=== PATIENT | female | born 1970 | race Two or more races ===

== ENCOUNTER 2022-04-30 15:32 | Emergency (ER) | payer OTHER, SELFPAY ==
--- NOTE | ~2022-04-30 | XR_ITS ---
EXAMINATION: XR hand LT 2V CLINICAL INFORMATION: Reason for Exam fishing hook stuck COMPARISON: None. TECHNIQUE: AP, lateral, and oblique views of the hand FINDINGS: No acute fracture or dislocation. Joint spaces are maintained without significant degenerative change. Metallic foreign body compatible with fishing hook is seen in the volar soft tissues of the distal third digit. XR/XR hand LT 2V IMPRESSION: Metallic foreign body compatible with fishing hook is seen in the volar soft tissues of the distal third digit. No acute osseous abnormality.
[2022-04-30 15:45] VITALS: BP 137/80; BP 150/88; PULSE 101; PULSE 88; RESP 18; TEMP 36.7; O2SAT 95; O2SAT 98; BMI 24.5
--- NOTE | 2022-04-30 15:56 | ED.GENADULT ---
HPI - General Adult General Chief complaint: General Medical <Holley Yao NP - Last Filed: 04/30/22 16:00> Stated complaint: Fishing hook through finger per ems <Holley Yao NP - Last Filed: 04/30/22 16:00> Time Seen by Provider: 04/30/22 16:45 <Holley Yao NP - Last Filed: 04/30/22 16:00> Source: patient <LOUISE Westbrook - Last Filed: 04/30/22 17:43> Mode of arrival: ambulatory <LOUISE Westbrook - Last Filed: 04/30/22 17:43> Limitations: no limitations <LOUISE Westbrook - Last Filed: 04/30/22 17:43> History of Present Illness HPI narrative: 52-year-old female who is presenting from a half-way after when she was picking up socks off the floor and a fishhook accidentally punctured her in the left-hand middle finger at the distal aspect prior to arrival. She reports she is unsure if she is up-to-date on tetanus. She denies any other injuries complaints or concerns at this time <LOUISE Westbrook - Last Filed: 04/30/22 17:43> MD complaint: Kingsford stuck to left middle finger <LOUISE Westbrook - Last Filed: 04/30/22 17:43> Onset (ago): minute(s) (Prior to arrival) <LOUISE Westbrook - Last Filed: 04/30/22 17:43> Related Data Home medications: Previous Rx's Medication Instructions Recorded cephalexin 500 mg capsule 500 mg PO BID 7 days #14 caps 04/30/22 <Holley Yao NP - Last Filed: 04/30/22 16:00> Allergies/adverse reactions: Allergies Allergy/AdvReac Type Severity Reaction Status Date / Time No Known Allergies Allergy Verified 04/30/22 15:45 <Holley Yao NP - Last Filed: 04/30/22 16:00> Review of Systems Review of Systems: Constitutional : No Weight loss, No Fever, No Chills, No Night Sweats, No Fatigue, No Malaise ENT/Mouth : No Hearing loss, No Ear Pain, No Nasal Congestion, No Sinus Pain, No Hoarseness, No sore throat, No Rhinorrhea, No Swallowing Difficulty Eyes: No Eye Pain, No Swelling, No Redness, No Foreign Body, No Discharge, No Vision Changes Cardiovascular : No Chest Pain, No SOB, No Dyspnea on Exertion, No Orthopnea, No Edema, No Palpitations Respiratory : No Cough, No Sputum, No Wheezing, No Smoke Exposure, No Dyspnea Gastrointestinal : No Nausea, No Vomiting, No Diarrhea, No Constipation, No abdominal Pain, No Hematochezia, No Melena Genitourinary : no irregular bleeding, No Dysuria, No Urinary Frequency, No Hematuria, No Urinary Incontinence, No Urgency, No Flank Pain, No Urinary Flow Changes, No Hesitancy Musculoskeletal : No joint pain, No Myalgias, No Joint Swelling Skin : + fishhook to left middle finger distal aspect, No Skin Lesions, No rash Neuro : No Weakness, No Numbness, No Paresthesias, No Loss of Consciousness, No Dizziness, No Headache Psych : No Anxiety/Panic, No Depression, No SI/HI/AH/VH, No Social Issues, Heme/Lymph: No Bruising, No Bleeding,No Lymphadenopathy Endocrine : No Polyuria, No Polydipsia, No Temperature Intolerance <OLUISE Westbrook - Last Filed: 04/30/22 17:43> Yes all other systems are reviewed and are negative <LOUISE Westbrook - Last Filed: 04/30/22 17:43> PMFSH Past Medical History Attestation statement: The following information was validated with the patient. <LOUISE Westbrook - Last Filed: 04/30/22 17:43> Source: old records reviewed and nursing notes reviewed <LOUISE Westbrook - Last Filed: 04/30/22 17:43> Social History Social History: Social History Advance Directives: No Advance Directives Information Provided: No <Holley Yao NP - Last Filed: 04/30/22 16:00> Physical Exam ED Vital Signs: Vital Signs - 24 hr 04/30/22 15:45 Temperature 98.0 F Pulse Rate 88 Respiratory Rate 18 Blood Pressure 137/80 Pulse Oximetry 98 Oxygen Delivery Method Room Air BMI result Body Mass Index 24.5 <Holley Yao NP - Last Filed: 04/30/22 16:00> Vital Signs - 24 hr 04/30/22 15:45 Temperature 98.0 F Pulse Rate 88 Respiratory Rate 18 Blood Pressure 137/80 Pulse Oximetry 98 Oxygen Delivery Method Room Air BMI result Body Mass Index 24.5 vital signs have been reviewed as normal and appeared to be correct. Blood pressure normal. Heart rate normal. Respiration rate normal. Temperature normal. Oxygen saturation normal. <LOUISE Westbrook - Last Filed: 04/30/22 17:43> Appearance: Alert. Oriented X3. No acute distress. Head: Normal external exam. Normocephalic. Atraumatic. Eyes: PERRLA. EOMI. Conjunctiva and sclera normal. Eyelids normal. ENT: Pharynx normal. Uvula midline. Moist mucous membranes. No lesions/ulcerations or masses noted on the tongue. Normal voice. No trismus noted. No drooling noted. No muffled voice noted. Neck: Normal inspection. Neck supple. FROM. No adenopathy. Thyroid Normal. No meningeal signs. CVS: Normal heart rate and rhythm. Respiratory: No respiratory distress. Painless inspiration. Back: Full range of motion noted. Skin: Skin warm and dry. Normal skin color. Normal skin turgor. [place] embedded into the left hand middle finger at the distal fat pad. No bony tenderness and patient has full range of motion no obvious ligamentous or tendon injury noted. No additional rashes/lesions/lacerations noted. Extremities: Extremities exhibit normal range of motion and nontender. Neuro: Oriented X 3. No motor deficit. No sensory deficit. Reflexes normal. Normal steady gait. No focal neuro deficits noted. CN's II-XII intact bilaterally? Vascular: + radial pulses Normal cap refill. No cyanosis noted to upper extremity nails <LOUISE Westbrook - Last Filed: 04/30/22 17:43> Course Course Course Narrative: This is a rapid medical exam. Deferred HPI, ROS, PE to primary provider. From [facility] fel[facility]. Right hand dominant patient here with fishhook to left middle finger. Will check x-ray. Needs FB removal. VSS <Holley Yao NP - Last Filed: 04/30/22 16:00> Reevaluation(s) Reevaluation #1: Patient now status post fishhook removal. Patient tolerated procedure well. No complications. Tetanus updated at this time. Will DC home with antibiotics and symptomatic treatment instructions return if any new or worsening symptoms to follow up with primary care provider. Patient understands agrees with this plan. <LOUISE Westbrook - Last Filed: 04/30/22 17:43> Time: 17:18 <LOUISE Westbrook - Last Filed: 04/30/22 17:43> Medications Administered Discontinued Medications Generic Name Dose Route Start Last Admin Trade Name Freq PRN Reason Stop Dose Admin Diphtheria/Tetanus/Acell Pertussis 0.5 ml 04/30/22 17:14 04/30/22 17:36 Diphth,Pertus(Acell),Tet Adult 0.5 Ml Syringe IM 04/30/22 17:15 0.5 ml .ONCE ONE Administration <Holley Yao NP - Last Filed: 04/30/22 16:00> Medications Administered Discontinued Medications Generic Name Dose Route Start Last Admin Trade Name Freq PRN Reason Stop Dose Admin Diphtheria/Tetanus/Acell Pertussis 0.5 ml 04/30/22 17:14 04/30/22 17:36 Diphth,Pertus(Acell),Tet Adult 0.5 Ml Syringe IM 04/30/22 17:15 0.5 ml .ONCE ONE Administration <LOUISE Westbrook - Last Filed: 04/30/22 17:43> Procedures Foreign Body Removal Time Out Performed: yes <LOUISE Westbrook - Last Filed: 04/30/22 17:43> Site: left and hand (middle finger) <LOUISE Westbrook - Last Filed: 04/30/22 17:43> Description of foreign body: fish hook <LOUISE Westbrook - Last Filed: 04/30/22 17:43> Sedation/Analgesia: none <LOUISE Westbrook - Last Filed: 04/30/22 17:43> Technique: manual removal, removal with forceps and other (fish hook was cut ) <LOUISE Westbrook - Last Filed: 04/30/22 17:43> Confirmed by:: direct visualization, radiograph, patient report and palpation <LOUISE Westbrook - Last Filed: 04/30/22 17:43> Complications: none <LOUISE Westbrook - Last Filed: 04/30/22 17:43> Post-procedure exam: awake, alert, normal BP, normal HR and normal O2 sat <LOUISE Westbrook Last Filed: 04/30/22 17:43> Neurovascular: normal distal pulse, normal capillary fill, distal light touch sensation intact, distal motor function normal, no signs of compartment syndrome and no change from pre-procedure <LOUISE Westbrook - Last Filed: 04/30/22 17:43> Medical Decision Making Imaging Data Left hand x-ray: Attestation: I personally reviewed and interpreted this imaging study as follows: <LOUISE Westbrook Last Filed: 04/30/22 17:43> Radiologist's impression: FINDINGS: No acute fracture or dislocation. ? Joint spaces are maintained without significant degenerative change. Metallic foreign body compatible with fishing hook is seen in the volar soft tissues of the distal third digit. XR/XR hand LT 2V IMPRESSION: ? Metallic foreign body compatible with fishing hook is seen in the volar soft tissues of the distal third digit. No acute osseous abnormality. <LOUISE Westbrook - Last Filed: 04/30/22 17:43> Discharge Plan Discharge Clinical Impression: Fish hook injury of left middle finger <Holley Yao NP - Last Filed: 04/30/22 16:00> Patient Disposition: Home, Self-Care <Holley Yao NP - Last Filed: 04/30/22 16:00> Instructions: Soft Tissue Foreign Body (ED) <Holley Yao NP - Last Filed: 04/30/22 16:00> Prescriptions: New cephalexin 500 mg capsule 500 mg PO BID 7 Days Qty: 14 0RF <Holley Yao NP - Last Filed: 04/30/22 16:00>
[2022-04-30] MEDS: Diphth,Pertus(ACell),Tet Adult 0.5 ML SYRINGE IM (17:36)
--- NOTE | 2022-04-30 18:32 | PC.NURSE ---
Jeannette called at 182 for a bls transfer back to [facility] in [place].ETA within the hour.Kina aware
--- NOTE | 2022-04-30 19:12 | PC.NURSE ---
report called to responsible person Dawna @lala Russell tranferred back to facility via Joe PEREZ
== END 2022-04-30 19:14 | disposition home or self-care (01) ==
PROVIDERS: Emergency Provider Emergency Medicine Emergency Medical Services
DX: S61.243A Puncture wound with foreign body of left middle finger without damage to nail, initial encounter (principal); W45.8XXA Other foreign body or object entering through skin, initial encounter; Y93.E2 Activity, laundry; Y92.042 Bedroom in boarding-house as the place of occurrence of the external cause; Y99.9 Unspecified external cause status
CPT/HCPCS: 73120; 90471; 90715; 99282; 99284

== ENCOUNTER 2022-08-11 10:06 | Emergency (ER) | payer OTHER, SELFPAY ==
--- NOTE | ~2022-08-11 | CT_ITS ---
EXAMINATION: CT abdomen and pelvis with contrast CLINICAL INFORMATION: Generalized abdominal pain COMPARISON: None available. TECHNIQUE: Contiguous axial thin section helical images of the abdomen and pelvis was performed following the administration of 85 mL of Omnipaque 350 intravenous contrast. The data set was reformatted in the coronal and sagittal planes and reviewed on an independent workstation. This CT examination was performed using dose optimization techniques as appropriate, variously including the following: *Automated exposure control *Adjustment of mA and/or kV according to patient size (this includes techniques or standardized protocols for targeted exams where dose is matched to indication/reason for exam; i.e. extremities or head) *Use of iterative reconstruction technique DLP: 480 mGy-cm FINDINGS: Visualized lung bases demonstrate mild dependent atelectasis. The liver demonstrates normal size, contour and attenuation. The gallbladder is normal in appearance. The pancreas, spleen and adrenal glands are unremarkable. Symmetrically enhancing kidneys. There is no hydronephrosis of either kidney. 6 mm hypodense lesion within the midpole of the right kidney is too small to accurately characterize. Normal caliber loops of small and large bowel. There is primarily liquid stool is throughout the colon. Normal appendix. Normal caliber abdominal aorta. No retroperitoneal lymphadenopathy. The bladder is normal in appearance. The uterus is either atrophic or surgically absent. No gross free pelvic fluid. A few shotty pelvic lymph nodes are noted bilaterally. Mild degenerative changes of the spine. CT/CT abdomen w IV con IMPRESSION: 1. There is primarily liquid stool throughout the colon. This is a nonspecific finding but most suggestive of an infectious or inflammatory process. 2. 6 mm hypodense lesion within the midpole of the right kidney is too small to accurately characterize. This may be further evaluated with dedicated renal ultrasound if clinically indicated. Fleischner guidelines were followed.
[2022-08-11 10:13] VITALS: BP 100/63; PULSE 94; O2SAT 99
--- NOTE | 2022-08-11 10:14 | ECG_ITS ---
Test Reason : ABD PAIN Blood Pressure : / mmHG Vent. Rate : 087 BPM Atrial Rate : 087 BPM P-R Int : 138 ms QRS Dur : 082 ms QT Int : 376 ms P-R-T Axes : 043 064 062 degrees QTc Int : 452 ms Normal sinus rhythm Low voltage QRS Nonspecific T wave abnormality Abnormal ECG No previous ECGs available Referred By: Jeff Aguirre Electronically Signed By:Randy Singh
[2022-08-11 10:21] LABS: Glucose, Whole Blood 171 mg/dL (60-115)
[2022-08-11 10:28] VITALS: BP 110/77; PULSE 91; RESP 20; TEMP 36.5; O2SAT 96; BMI 31.8
--- NOTE | 2022-08-11 10:29 | ED.ABDPAIN ---
HPI - Abdominal Pain General Chief Complaint: Nausea/Vomiting/Diarrhea Stated Complaint: ABD PAIN,NAUSEA FROM [facility] PER EMS Time Seen by Provider: 08/11/22 10:08 Source: patient and EMS Mode of arrival: EMS Limitations: no limitations History of Present Illness HPI narrative: 52-year-old female coming from a longterm presents with 2 days of abdominal pain, nausea no vomiting, no constipation or diarrhea. Patient describes her pain is intermittent. The pain is moderate to severe. There is no clear relieving or exacerbating features. The abdominal pain is generalized and does not radiate. It is associated with nausea but no vomiting. She has had normal bowel movements without diarrhea constipation. She is passing flatus. She denies any vaginal bleeding or discharge. She has no urinary frequency, urgency or dysuria. Prior to arrival, patient's blood sugar was 170, no to be moderately hypertensive. Facility reports that her blood sugars in the morning a been running low and they been attempting to alter her Trulicity dosage. Related Data Previous Rx's Medication Instructions Recorded cephalexin 500 mg capsule 500 mg PO BID 7 days #14 caps 04/30/22 ondansetron 4 mg disintegrating 4 mg PO Q8H PRN nausea and 08/11/22 tablet vomiting #10 tabs Allergies Allergy/AdvReac Type Severity Reaction Status Date / Time No Known Allergies Allergy Verified 04/30/22 15:45 [facility] Social History Social History Alcohol intake: never Smoked in Last 30 Days: Yes Use of substances other than those prescribed or required for medical reasons: No Advance Directives: No Advance Directives Information Provided: Yes Physical Exam ED Vital Signs: Vital Signs - 24 hr 08/11/22 10:28 Temperature 97.7 F Pulse Rate 91 Respiratory Rate 20 Blood Pressure 110/77 Pulse Oximetry 96 Oxygen Delivery Method Room Air BMI result Body Mass Index 31.8 GEN: Well developed, no acute distress, alert, oriented HEENT: Normocephalic, atraumatic, normal external ears, nose appears normal, no oropharyngeal edema or exudates Eyes: Normal to appearance Neck: Supple, no lymphadenopathy Respiratory: Talks in complete sentences, no respiratory distress, clear to auscultation bilaterally Cardiovascular: Regular rate and rhythm, no murmurs rubs or gallops Abdomen: Soft, + generALIZED TENDERNESS , nondistended, no guarding, no rebound Back: No CVA tenderness Extremities: No clubbing cyanosis or edema Neurologic: No focal neurologic deficits, cranial nerves 2-12 intact, strength is 5/5 bilaterally, gait normal Skin: No rash Course Course Course Narrative: 52-year-old female presents with abdominal pain associated with nausea. Examination was relatively benign with diffuse abdominal tenderness no rebound or guarding. Negative Oneal sign, negative McBurney's point tenderness. A broad differential diagnosis being considered. Patient had a CT scan, laboratory analysis, urinalysis, EKG. Reevaluation(s) Reevaluation #1: Patient is currently feeling better. She will be discharged at this time. She is tolerating oral intake. We discussed all results and plan. She will be given a prescription for Zofran to take as needed. We talked about taking higher fiber and rice and bananas as needed help with diarrhea Time: 13:21 Medical Decision Making Medical Decision Making [facility] Narrative: 52-year-old female presents with abdominal pain and nausea. Examination is concerning for diffuse abdominal tenderness. However there is no rebound or guarding. She has nausea but no vomiting. She is passing flatus and bowel movements. Differential diagnosis is broad and is currently being considered including but not limited to gastroenteritis, IBD, IBS, bacterial overgrowth, gastroenteritis, viral syndrome, cardiac, SBO, ileus. Doubt dissection or ruptured AAA. There are no red flag findings on exam or history. Patient will receive analgesics, antiemetics and IV fluids with frequent re-evaluations. Differential Diagnosis Differential Diagnoses: The differential diagnosis associated with the presentation includes (gastroenteritis, IBD, IBS, bacterial overgrowth, gastroenteritis, viral syndrome, cardiac, SBO, ileus) Nausea, vomiting, abdominal pain Admission/Observation Consideration of admission/observation: Escalation of care including admission/observation considered Lab Data [facility] Lab Attestation statement: I reviewed the patient's lab results. 08/11/22 10:26 08/11/22 10:26 Labs: Lab Results 08/11/22 08/11/22 08/11/22 Range/Units 10:13 10:26 10:26 WBC 9.6 (4.8-10.8) X10*3/uL RBC 4.71 (4.20-5.50) X10*6/uL Hgb 14.4 (12.0-16.0) g/dl Hct 43.1 (37.0-47.0) % MCV 91.5 (80.0-98.0) fL MCH 30.6 (27.0-33.0) pg MCHC 33.4 (31.0-35.0) g/dl RDW 12.5 (11.0-16.0) % Plt Count 387 (160-400) X10*3/uL MPV 10.1 (9.4-12.3) fL Immature Gran % (Auto) 0.4 (0.0-0.4) % Neut % (Auto) 70.5 (45-73) % Lymph % (Auto) 21.0 (20-40) % [place] % (Auto) 5.7 (2-11) % Eos % (Auto) 1.8 (0-4) % Baso % (Auto) 0.6 (0-2) % Lymph # (Auto) 2.0 (1.2-4.9) X10*3/uL [place] # (Auto) 0.6 (0.1-1.2) X10*3/uL Eos # (Auto) 0.2 (0.0-0.4) X10*3/uL Baso # (Auto) 0.1 (0.0-0.2) X10*3/uL Abs Immat Gran (auto) 0.04 H (0.00-0.03) X10*3/uL Absolute Neuts (auto) 6.8 (2.0-8.3) x10*3/uL Absolute Nucleated RBC 0.000 (0.0-0.012) X10*3/uL Nucleated RBC % (auto) 0.0 (0.0-0.2) /100WBC Sodium 141 (135-145) mmol/L Potassium 4.1 (3.3-5.1) mmol/L Chloride 106 (96-108) mmol/L Carbon Dioxide 24 (22-29) mmol/L Anion Gap 15 (12-20) BUN 13 (9-16) mg/dL Creatinine 0.99 (0.5-1.4) mg/dL Estim Creat Clear Calc 63.6 Estimated GFR 59 POC Glucose 171 H (60-115) mg/dL Random Glucose 124 H (60-115) mg/dL Calcium 9.6 (8.4-10.2) mg/dL Total Bilirubin 0.7 (0.0-1.0) mg/dL Direct Bilirubin 0.2 (0.0-0.5) mg/dL AST 16 (5-31) U/L ALT 21 (0-31) U/L Alkaline Phosphatase 162 H (39-117) U/L Troponin I High Sens (<3.5-17.0) ng/L Total Protein 7.5 (6.5-8.0) g/dL Albumin 4.5 (3.5-5.0) g/dL Lipase 57 (8-78) U/L 08/11/22 Range/Units 10:26 WBC (4.8-10.8) X10*3/uL RBC (4.20-5.50) X10*6/uL Hgb (12.0-16.0) g/dl Hct (37.0-47.0) % MCV (80.0-98.0) fL MCH (27.0-33.0) pg MCHC (31.0-35.0) g/dl RDW (11.0-16.0) % Plt Count (160-400) X10*3/uL MPV (9.4-12.3) fL Immature Gran % (Auto) (0.0-0.4) % Neut % (Auto) (45-73) % Lymph % (Auto) (20-40) % [place] % (Auto) (2-11) % Eos % (Auto) (0-4) % Baso % (Auto) (0-2) % Lymph # (Auto) (1.2-4.9) X10*3/uL [place] # (Auto) (0.1-1.2) X10*3/uL Eos # (Auto) (0.0-0.4) X10*3/uL Baso # (Auto) (0.0-0.2) X10*3/uL Abs Immat Gran (auto) (0.00-0.03) X10*3/uL Absolute Neuts (auto) (2.0-8.3) x10*3/uL Absolute Nucleated RBC (0.0-0.012) X10*3/uL Nucleated RBC % (auto) (0.0-0.2) /100WBC Sodium (135-145) mmol/L Potassium (3.3-5.1) mmol/L Chloride (96-108) mmol/L Carbon Dioxide (22-29) mmol/L Anion Gap (12-20) BUN (9-16) mg/dL Creatinine (0.5-1.4) mg/dL Estim Creat Clear Calc Estimated GFR POC Glucose (60-115) mg/dL Random Glucose (60-115) mg/dL Calcium (8.4-10.2) mg/dL Total Bilirubin (0.0-1.0) mg/dL Direct Bilirubin (0.0-0.5) mg/dL AST (5-31) U/L ALT (0-31) U/L Alkaline Phosphatase (39-117) U/L Troponin I High Sens < 3.5 (<3.5-17.0) ng/L Total Protein (6.5-8.0) g/dL Albumin (3.5-5.0) g/dL Lipase (8-78) U/L Independent Interpretation I performed an independent interpretation of an: EKG (Normal sinus rhythm heart rate 87, no acute ST elevations or depressions, normal intervals, nonspecific T-wave changes.) and CT Scan (Significant stool burden, no evidence of SBO) Radiology Impression Discussion of test interpretation with radiology: I have reviewed the radiologist's reading. ( CT/CT abdomen w IV con IMPRESSION: 1. There is primarily liquid stool throughout the colon. This is a nonspecific finding but most suggestive of an infectious or inflammatory process. 2. 6 mm hypodense lesion within the midpole of the right kidney is too small to accurately alize) Independent Historian Clinical information obtained from an independent historian. History obtained from or confirmed by: EMS Tests considered The following testing was considered but not selected: A x-ray abdomen chest Prescription Management I considered prescription management with: Pain Medication Chronic Conditions Patient?s care impacted by: Diabetes and Hypertension Social Determinants Patient?s care significantly limited by Social Determinants of Health including: Other Social Determinant of Health Medications Administered Discontinued Medications Generic Name Dose Route Start Last Admin Trade Name Freq PRN Reason Stop Dose Admin Famotidine 20 mg 08/11/22 10:11 08/11/22 10:31 Famotidine/Pf 20 Mg/2 Ml Vial IVPUSH 03/16/23 10:12 20 mg ONCE ONE Administration Sodium Chloride 1,000 mls @ 999 mls/hr 08/11/22 10:15 08/11/22 13:09 Ns IV 08/11/22 11:15 Infused .Q1H1M BRYNN Infusion Iohexol 85 ml 08/11/22 11:17 08/11/22 11:17 Iohexol 350 Mg/Ml 100 Ml Infus..Btl IV 08/11/22 11:18 85 ml ONCE ONE Administration Ketorolac Tromethamine 15 mg 08/11/22 10:11 08/11/22 10:31 Ketorolac Tromethamine 15 Mg/Ml Vial IVPUSH 08/11/22 10:12 15 mg ONCE ONE Administration Ondansetron HCl 4 mg 08/11/22 10:11 08/11/22 10:32 Ondansetron Hcl 4 Mg/2 Ml Vial IVPUSH 08/11/22 10:12 4 mg ONCE ONE Administration Discharge Plan Discharge Clinical Impression: Nausea & vomiting, Abdominal pain, Kidney lesion Patient Disposition: Home, Self-Care Instructions: Acute Nausea and Vomiting (ED), Abdominal Pain (ED), Kidney Ultrasound (ED) Additional Instructions: Also of note on your results was the lesion on your right kidney. Was too small to characterize. We would recommend 3-6 month follow-up with an ultrasound dedicated to the kidneys. You should discuss this with your primary care provider. Prescriptions: New ondansetron 4 mg tablet,disintegrating 4 mg PO Q8H PRN (Reason: nausea and vomiting) Qty: 10 0RF No Action cephalexin 500 mg capsule 500 mg PO BID 7 Days Qty: 14 0RF Referrals: Physician,Unknown J [Primary Care Provider] - 1 week
[2022-08-11] MEDS: Ketorolac Tromethamine 15 MG/ML VIAL IVPUSH (10:31)
[2022-08-11] MEDS: 0.9 % Sodium Chloride 1,000 ML 999 ML IV (10:31)
[2022-08-11] MEDS: Famotidine/PF 20 MG/2 ML VIAL IVPUSH (10:31)
[2022-08-11] MEDS: ondansetron HCL 4 MG/2 ML VIAL IVPUSH (10:32)
[2022-08-11 10:34] LABS: MANUAL DIFF FLAG NO
[2022-08-11 10:36] LABS: Basophils Absolute Auto 0.1 X10*3/uL (0.0-0.2); Basophils Percent Auto 0.6 % (0-2); Eosinophils Absolute Auto 0.2 X10*3/uL (0.0-0.4); Eosinophils Percent Auto 1.8 % (0-4); Hematocrit 43.1 % (37.0-47.0); Hemoglobin 14.4 g/dl (12.0-16.0); Imm Gran Abs Auto 0.04 X10*3/uL (0.00-0.03); Imm Gran Pct Auto 0.4 % (0.0-0.4); Mean Corpuscular HGB Conc 33.4 g/dl (31.0-35.0); Mean Corpuscular Hemoglobin 30.6 pg (27.0-33.0); Mean Corpuscular Volume 91.5 fL (80.0-98.0); Mean Platelet Volume 10.1 fL (9.4-12.3); Monocytes Absolute Auto 0.6 X10*3/uL (0.1-1.2); Monocytes Percent Auto 5.7 % (2-11); Neutrophils Absolute Auto 6.8 x10*3/uL (2.0-8.3); Neutrophils Percent Auto 70.5 % (45-73); Platelet Count 387 X10*3/uL (160-400); Red Blood Count 4.71 X10*6/uL (4.20-5.50); Red Cell Distribution Width 12.5 % (11.0-16.0); White Blood Count 9.6 X10*3/uL (4.8-10.8)
--- NOTE | 2022-08-11 10:43 | PC.NURSE ---
Patient resting on stretcher calm and cooperative. Patient has been nauseated for the past 2 days and has been vomiting for he past day. IV obtained and labs sent. Patient currently receiving fluids.
[2022-08-11 10:58] LABS: Alanine Aminotransferase 21 U/L (0-31); Albumin Level 4.5 g/dL (3.5-5.0); Alkaline Phosphatase 162 U/L (39-117); Anion Gap 15 (12-20); Aspartate Amino Transferase 16 U/L (5-31); Bilirubin Direct 0.2 mg/dL (0.0-0.5); Bilirubin Total 0.7 mg/dL (0.0-1.0); Blood Urea Nitrogen 13 mg/dL (9-16); Calcium 9.6 mg/dL (8.4-10.2); Carbon Dioxide 24 mmol/L (22-29); Chloride 106 mmol/L (96-108); Creatinine Clr Calc Pharmacy 63.6; Estimated Glomerular Filt Rate 59; Glucose Random 124 mg/dL (60-115); Lipase 57 U/L (8-78); Potassium 4.1 mmol/L (3.3-5.1); Sodium 141 mmol/L (135-145); Total Protein 7.5 g/dL (6.5-8.0)
[2022-08-11 11:06] LABS: Troponin-I High Sensitivity < 3.5 ng/L (<3.5-17.0)
[2022-08-11] MEDS: iohexoL 350 MG/ML 100 ML INFUS..BTL 85 ML IV (11:17)
[2022-08-11 13:58] LABS: Appearance Urine Clear; Color Urine Yellow; Glucose Urine UA Negative (Negative); Leukocyte Esterase Urine Negative (Negative); Nitrite Urine Negative (Negative); Specific Gravity - Urine >= 1.030 (1.005-1.025); Urine Blood Negative (Negative); Urine Ketones Negative (Negative); Urine Protein Negative (Neg-Trace)
[2022-08-11 14:00] LABS: UPreg QC Valid YES; Urine Pregnancy NEGATIVE (NEGATIVE)
[2022-08-11 14:16] VITALS: BP 105/59; PULSE 83; RESP 16; TEMP 36.2; O2SAT 98
== END 2022-08-11 14:57 | disposition home or self-care (01) ==
PROVIDERS: Emergency Provider Emergency Medicine
DX: R11.2 Nausea with vomiting, unspecified (principal); R10.84 Generalized abdominal pain; N28.9 Disorder of kidney and ureter, unspecified; E11.9 Type 2 diabetes mellitus without complications; Z79.85 Long-term (current) use of injectable non-insulin antidiabetic drugs
CPT/HCPCS: 36415; 74160; 80048; 80076; 81003; 81025; 82947; 83690; 84484; 85025; 93005; 96361; 96374; 96375; 99285; J1885; J2405; Q9967

== ENCOUNTER 2022-12-04 01:33 | Inpatient (IN) | payer OTHER, SELFPAY ==
[2022-12-04] VITALS (8 sets, daily range): BP systolic 93–127; BP diastolic 53–98; PULSE 58–93; RESP 13–18; TEMP 36.2–37.1; O2SAT 95–98; BMI 27.3; BMI 27.0
--- NOTE | 2022-12-04 01:36 | ED.NEUROSD ---
HPI - Neuro Symptoms/Deficit General Chief Complaint: Stroke Stated Complaint: stroke symtoms Time Seen by Provider: 12/04/22 01:35 Related Data Previous Rx's Medication Instructions Recorded cephalexin 500 mg capsule 500 mg PO BID 7 days #14 caps 04/30/22 ondansetron 4 mg disintegrating 4 mg PO Q8H PRN nausea and 08/11/22 tablet vomiting #10 tabs Allergies Allergy/AdvReac Type Severity Reaction Status Date / Time No Known Allergies Allergy Verified 04/30/22 15:45 [facility] Social History Social History Alcohol intake: never Smoked in Last 30 Days: No Use of substances other than those prescribed or required for medical reasons: No Advance Directives: No Advance Directives Information Provided: Yes Patient : No Physical Exam Vital Signs: Vital Signs: Last Vital Signs Temp 97.9 F 12/04/22 02:15 Pulse 79 12/04/22 02:15 Resp 13 12/04/22 02:15 BP 127/66 12/04/22 02:15 Pulse Ox 96 12/04/22 02:15 O2 Del Method Room Air 12/04/22 02:15 BMI result Body Mass Index 27.3 Medications Administered Discontinued Medications Generic Name Dose Route Start Last Admin Trade Name Freq PRN Reason Stop Dose Admin Iohexol 100 ml 12/04/22 03:08 12/04/22 03:08 Iohexol 350 Mg/Ml 100 Ml Infus..Btl IV 12/04/22 03:09 100 ml ONCE ONE Administration Medical Decision Making Medical Decision Making MDM Narrative: 52-year-old female on initial evaluation, has although previous workup at [facility] for her prior stroke and will request those records. On my examination patient overall appears somewhat drowsy although she is alert and performs all actions requested of her. Speech is affected. Patient appears to have symptoms of weakness bilaterally. Blood pressure is within normal limits, INR is within normal limits, and patient is only on aspirin. 0154: [facility] call the results and states that there is no acute transcortical infarct, but then later rights in the report that there is age indeterminate bilateral ganglial capsular lacunar infarcts and extensive white matter microangiopathic disease with a small acute ischemic process cannot be excluded in this setting. The recommendation is for MRI of the brain. 0224: I re-evaluated the patient at bedside, she continues with speech difficulties that she states are not her baseline, she does have a tendency to answer differently on one hand says that she does not use a walker and then on the other hand states that she does use a walker, EMS said that she was able to stand and pivot to get onto the stretcher. DTRs are intact. Patient also endorses that both she and her family members have CADASIL. I have a call out to Neurology. 0301: I spoke with DR Underwood, neurology (there was some confusion regarding which Dr Underwood vs. neurology). Recommend against tPA at this time, but agrees with ASA. Will admit patient, CT angio head neck without evidence to suggest LVO. Hematologic indices do not demonstrate any leukocytosis/left shift or anemia. Chemistries are grossly within normal limits with the exception of a mild low potassium which will be repleted. Troponin is undetectable in EKG does not demonstrate any acute ischemic changes. There remains the possibility that this may be medication related, but will need to follow-up with MRI in the morning. 0344: I discussed case with inpatient hospitalist. Consult Healthcare Provider Management of the patient was discussed with: Hospitalist Please see the discussion above Lab Data Please see the discussion above 12/04/22 02:05 12/04/22 02:05 Labs: Lab Results 12/04/22 12/04/22 12/04/22 Range/Units 01:54 02:05 02:05 WBC 8.8 (4.8-10.8) X10*3/uL RBC 4.14 L (4.20-5.50) X10*6/uL Hgb 12.6 (12.0-16.0) g/dl Hct 38.7 (37.0-47.0) % MCV 93.5 (80.0-98.0) fL MCH 30.4 (27.0-33.0) pg MCHC 32.6 (31.0-35.0) g/dl RDW 12.7 (11.0-16.0) % Plt Count 380 (160-400) X10*3/uL MPV 9.7 (9.4-12.3) fL Immature Gran % (Auto) 0.2 (0.0-0.4) % Neut % (Auto) 61.2 (45-73) % Lymph % (Auto) 28.0 (20-40) % Latimer % (Auto) 7.8 (2-11) % Eos % (Auto) 2.2 (0-4) % Baso % (Auto) 0.6 (0-2) % Lymph # (Auto) 2.5 (1.2-4.9) X10*3/uL Latimer # (Auto) 0.7 (0.1-1.2) X10*3/uL Eos # (Auto) 0.2 (0.0-0.4) X10*3/uL Baso # (Auto) 0.1 (0.0-0.2) X10*3/uL Abs Immat Gran (auto) 0.02 (0.00-0.03) X10*3/uL Absolute Neuts (auto) 5.4 (2.0-8.3) x10*3/uL Absolute Nucleated RBC 0.000 (0.0-0.012) X10*3/uL Nucleated RBC % (auto) 0.0 (0.0-0.2) /100WBC PT 10.9 (10.0-13.1) SEC Whole Blood PT 12.4 (11.1-13.5) sec INR 1.0 (0.9-1.1) Whole Blood INR 1.0 (0.9-1.1) APTT 26.0 (26.0-36.4) SEC Sodium (135-145) mmol/L Potassium (3.3-5.1) mmol/L Chloride (96-108) mmol/L Carbon Dioxide (22-29) mmol/L Anion Gap (12-20) BUN (9-16) mg/dL Creatinine (0.5-1.4) mg/dL Estim Creat Clear Calc Estimated GFR Random Glucose (60-115) mg/dL Calcium (8.4-10.2) mg/dL Total Creatine Kinase (26-140) U/L Troponin I High Sens (<3.5-17.0) ng/L 12/04/22 12/04/22 Range/Units 02:05 02:05 WBC (4.8-10.8) X10*3/uL RBC (4.20-5.50) X10*6/uL Hgb (12.0-16.0) g/dl Hct (37.0-47.0) % MCV (80.0-98.0) fL MCH (27.0-33.0) pg MCHC (31.0-35.0) g/dl RDW (11.0-16.0) % Plt Count (160-400) X10*3/uL MPV (9.4-12.3) fL Immature Gran % (Auto) (0.0-0.4) % Neut % (Auto) (45-73) % Lymph % (Auto) (20-40) % Latimer % (Auto) (2-11) % Eos % (Auto) (0-4) % Baso % (Auto) (0-2) % Lymph # (Auto) (1.2-4.9) X10*3/uL Latimer # (Auto) (0.1-1.2) X10*3/uL Eos # (Auto) (0.0-0.4) X10*3/uL Baso # (Auto) (0.0-0.2) X10*3/uL Abs Immat Gran (auto) (0.00-0.03) X10*3/uL Absolute Neuts (auto) (2.0-8.3) x10*3/uL Absolute Nucleated RBC (0.0-0.012) X10*3/uL Nucleated RBC % (auto) (0.0-0.2) /100WBC PT (10.0-13.1) SEC Whole Blood PT (11.1-13.5) sec INR (0.9-1.1) Whole Blood INR (0.9-1.1) APTT (26.0-36.4) SEC Sodium 146 H (135-145) mmol/L Potassium 3.1 L D (3.3-5.1) mmol/L Chloride 107 (96-108) mmol/L Carbon Dioxide 27 (22-29) mmol/L Anion Gap 15 (12-20) BUN 8 L (9-16) mg/dL Creatinine 0.83 (0.5-1.4) mg/dL Estim Creat Clear Calc 78.9 Estimated GFR > 60 Random Glucose 101 (60-115) mg/dL Calcium 10.6 H D (8.4-10.2) mg/dL Total Creatine Kinase 53 (26-140) U/L Troponin I High Sens < 2.7 (<3.5-17.0) ng/L Independent Interpretation I performed an independent interpretation of an: EKG Interpretation: Normal sinus rhythm, HR-75, no STEMI, PA/QRS/QTC is within normal limits. NIH Stroke Scale Internal: Initial- Upon Arrival Level of Consciousness: Alert Level of Consciousness Questions: Answers both questions correctly Level of Consciousness Commands: Performs both tasks correctly Best Gaze: Normal Visual: No visual loss Facial Palsy: Normal Motor Arm (Right): No drift Motor Arm (Left): No drift Motor Leg (Right): No drift Motor Leg (Left): No drift Limb Ataxia: Absent Sensory: Normal Best Language: Mild to moderate aphasia Dysarthia: Mild to moderate dysarthria Extinction and Inattention: No abnormality Score: 2 Discharge Plan Discharge Clinical Impression: Slurring of speech, CADASIL, TIA (transient ischemic attack) Patient Disposition: Admitted As Inpatient
[2022-12-04 02:17] LABS: Basophils Absolute Auto 0.1 X10*3/uL (0.0-0.2); Basophils Percent Auto 0.6 % (0-2); Eosinophils Absolute Auto 0.2 X10*3/uL (0.0-0.4); Eosinophils Percent Auto 2.2 % (0-4); Hematocrit 38.7 % (37.0-47.0); Hemoglobin 12.6 g/dl (12.0-16.0); Imm Gran Abs Auto 0.02 X10*3/uL (0.00-0.03); Imm Gran Pct Auto 0.2 % (0.0-0.4); Lymphocytes Absolute Auto 2.5 X10*3/uL (1.2-4.9); MANUAL DIFF FLAG NO; Mean Corpuscular HGB Conc 32.6 g/dl (31.0-35.0); Mean Corpuscular Hemoglobin 30.4 pg (27.0-33.0); Mean Corpuscular Volume 93.5 fL (80.0-98.0); Mean Platelet Volume 9.7 fL (9.4-12.3); Monocytes Absolute Auto 0.7 X10*3/uL (0.1-1.2); Monocytes Percent Auto 7.8 % (2-11); Neutrophils Absolute Auto 5.4 x10*3/uL (2.0-8.3); Neutrophils Percent Auto 61.2 % (45-73); Platelet Count 380 X10*3/uL (160-400); Red Blood Count 4.14 X10*6/uL (4.20-5.50); Red Cell Distribution Width 12.7 % (11.0-16.0); White Blood Count 8.8 X10*3/uL (4.8-10.8)
[2022-12-04 02:20] LABS: Stroke Lab Use COMPLETE
[2022-12-04 02:22] LABS: Prothrombin Time 10.9 SEC (10.0-13.1)
[2022-12-04 02:34] LABS: Anion Gap 15 (12-20); Blood Urea Nitrogen 8 mg/dL (9-16); Calcium 10.6 mg/dL (8.4-10.2); Carbon Dioxide 27 mmol/L (22-29); Chloride 107 mmol/L (96-108); Creatinine Clr Calc Pharmacy 78.9; Estimated Glomerular Filt Rate > 60; Glucose Random 101 mg/dL (60-115); Potassium 3.1 mmol/L (3.3-5.1); Sodium 146 mmol/L (135-145)
[2022-12-04 02:39] LABS: Troponin-I High Sensitivity < 2.7 ng/L (<3.5-17.0)
--- NOTE | 2022-12-04 05:55 | PM.IMHP ---
History of Present Illness Date of Service: 12/04/22 Chief Complaint: CVA This is a 52-year-old male with pertinent history of CADASIL, hypothyroidism, mood disorder, multiple sclerosis who presents to the emergency department evaluation of slurred speech. Patient states it started on the day of presentation. 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 She denies any sensory or motor extremity deficits. Patient without fever, chills, chest discomfort, palpitations, shortness of breath, abdominal pain, changes in urinary or bowel habits. In the emergency department, CT head with age indeterminate infarct. Neurology was consulted who requested admission. Review of Systems Constitutional: Constitutional: Reports no additional constitutional complaints Cardiovascular: Cardiovascular: Reports no additional cardiovascular complaints Respiratory: Respiratory: Reports no additional respiratory complaints Gastrointestinal: Gastrointestinal: Reports no additional gastrointestinal complaints Genitourinary: Genitourinary: Reports no additional female genitourinary complaints Neurologic: Reports Abnormal speech present [facility] Medical History CADASIL Hypothyroidism Mood disorder Multiple sclerosis Pertinent family history: No family history of early CAD Social History Alcohol intake: never Smoked in Last 30 Days: No Use of substances other than those prescribed or required for medical reasons: No Advance Directives: No Advance Directives Information Provided: Yes Patient : No Meds Allergies Allergy/AdvReac Type Severity Reaction Status Date / Time No Known Allergies Allergy Verified 04/30/22 15:45 Home Medications Medication Instructions Recorded Confirmed Last Taken Type acetaminophen 325 mg tablet 650 mg PO 12/04/22 Unknown History aspirin 25 mg-dipyridamole 200 mg 1 cap PO BID 12/04/22 12/04/22 Unknown History capsule,ext.release 12 hr multiphase aspirin 81 mg tablet,delayed 81 mg PO DAILY 12/04/22 12/04/22 12/04/22 03:00 History release atorvastatin 40 mg tablet 40 mg PO DAILY 12/04/22 12/04/22 Unknown History blood sugar diagnostic (OneTouch 12/04/22 12/04/22 Unknown History Verio test strips) blood-glucose meter (OneTouch 12/04/22 12/04/22 Unknown History Verio Flex Meter) bupropion HCl 300 mg 24 hr tablet, 300 mg PO DAILY 12/04/22 12/04/22 Unknown History extended release cetirizine 10 mg tablet 10 mg PO DAILY 12/04/22 12/04/22 Unknown History cholecalciferol (vitamin D3) 25 25 mcg PO DAILY 12/04/22 12/04/22 Unknown History mcg (1,000 unit) capsule (Vitamin D3) dulaglutide 1.5 mg/0.5 mL mg subcut 12/04/22 Unknown History subcutaneous pen injector (Trulicity) fluticasone furoate 100 1 ea inhalation DAILY 12/04/22 12/04/22 Unknown History mcg-vilanterol 25 mcg/dose inhalation powder (Breo Ellipta) fluticasone propionate 50 spray intranasal 12/04/22 Unknown History mcg/actuation nasal spray,suspension ibuprofen 600 mg tablet mg PO 12/04/22 Unknown History levothyroxine 50 mcg tablet 50 mcg PO DAILY 12/04/22 12/04/22 Unknown History ondansetron 4 mg disintegrating 4 mg PO Q8H PRN Nausea 12/04/22 12/04/22 Unknown History tablet venlafaxine 150 mg 150 mg PO DAILY 12/04/22 12/04/22 Unknown History capsule,extended release 24 hr Physical Exam Vital Signs and Narrative: Vital Signs: Last Vital Signs Temp 97.9 F 12/04/22 02:15 Pulse 79 12/04/22 02:15 Resp 13 12/04/22 02:15 BP 127/66 12/04/22 02:15 Pulse Ox 96 12/04/22 02:15 O2 Del Method Room Air 12/04/22 02:15 BMI result Body Mass Index 27.3 Middle-aged female lying in bed in no distress Neck supple, no JVD Regular rate and rhythm, S1-S2 heard Regular breath sounds bilaterally, no wheezing or crackles appreciated Abdomen soft nontender, no guarding, no rigidity Patient is awake, alert and oriented to self, place, time and person ; slurred speech present, strength 5/5 in left upper extremity and bilateral lower extremity, 4/5 in right upper extremity, no pronator drift, no nystagmus Psych: Normal mood No pedal edema Neuro: Speech: Abnormal speech present Results Labs 12/04/22 02:05 12/04/22 02:05 Labs: Laboratory Results - last 24 hr 12/04/22 12/04/22 12/04/22 01:54 02:05 02:05 MCV 93.5 MCH 30.4 MCHC 32.6 RDW 12.7 Plt Count 380 MPV 9.7 Immature Gran % (Auto) 0.2 Neut % (Auto) 61.2 Lymph % (Auto) 28.0 Jenkins % (Auto) 7.8 Eos % (Auto) 2.2 Baso % (Auto) 0.6 Lymph # (Auto) 2.5 Jenkins # (Auto) 0.7 Eos # (Auto) 0.2 Baso # (Auto) 0.1 Abs Immat Gran (auto) 0.02 Absolute Neuts (auto) 5.4 Absolute Nucleated RBC 0.000 Nucleated RBC % (auto) 0.0 PT 10.9 Whole Blood PT 12.4 INR 1.0 Whole Blood INR 1.0 APTT 26.0 Anion Gap Estim Creat Clear Calc Estimated GFR Random Glucose Calcium Total Creatine Kinase Troponin I High Sens 12/04/22 12/04/22 02:05 02:05 MCV MCH MCHC RDW Plt Count MPV Immature Gran % (Auto) Neut % (Auto) Lymph % (Auto) Jenkins % (Auto) Eos % (Auto) Baso % (Auto) Lymph # (Auto) Jenkins # (Auto) Eos # (Auto) Baso # (Auto) Abs Immat Gran (auto) Absolute Neuts (auto) Absolute Nucleated RBC Nucleated RBC % (auto) PT Whole Blood PT INR Whole Blood INR APTT Anion Gap 15 Estim Creat Clear Calc 78.9 Estimated GFR > 60 Random Glucose 101 Calcium 10.6 H D Total Creatine Kinase 53 Troponin I High Sens < 2.7 Imaging Radiologist's Impressions: Impressions Head CT 12/04/22 01:45 IMPRESSION: * No acute transcortical infarct. * Age-indeterminate bilateral gangliocapsular lacunar infarcts and extensive white matter microangiopathic disease. A small acute ischemic process cannot be excluded in this setting. Consider MRI of the brain if there is persistent clinical concern. This critical result was discussed with Mirian GIL at 12/04/2022 1:51 AM and it was ascertained that the content and urgency of the report was understood at the time of direct communication. Head/Neck CTA 12/04/22 03:10 IMPRESSION: No large vessel occlusion or hemodynamically significant stenosis within the intracranial or extracranial arterial vasculature. This critical result was discussed with Dr Harrison at 12/04/2022 3:14 AM and it was ascertained that the content and urgency of the report was understood at the time of direct communication. Assessment and Plan (1) Slurring of speech: Status: Acute Plan This is a 52-year-old male with pertinent history of CADASIL, hypothyroidism, mood disorder, multiple sclerosis who presents to the emergency department evaluation of slurred speech. #. Slurred speech, concerning for acute CVA. Patient with history of CADASIL. Will admit with desk monitor. Consulting Neurology and obtaining MRI. Patient received aspirin in the ER. Further workup based on MRI results #. Hypokalemia. Repleted #. Hypothyroidism on Synthroid #. Mood disorder. Continue home mood stabilizers Med rec pending DVT prophylaxis: Lovenox Full code Will admit as inpatient for possible CVA. Specialist consult pending Time Spent With Patient Time: Total time managing care of this patient today ____ minutes. Quality Stroke Does the patient have a stroke diagnosis?: No VTE Prior VTE?: No VTE Risk Level:: Medical - moderate - high VTE Device Contraindication: Treatment Not Indicated VTE Drug Contraindication: N/A - Med Ordered
--- NOTE | 2022-12-04 07:20 | PHA.MEDREC ---
Pharmacy Consult ? Medication Reconciliation Pharmacy has completed the medication reconciliation.pharmacy reviewed med rec done by nursing
--- NOTE | 2022-12-04 09:16 | MHC.CM.PN ---
CM ATTEMPTED TO SEE PT WHO IS NOT YET ON THE UNIT CM TO REVISIT
--- NOTE | 2022-12-04 10:52 | PM.NEUROCN ---
History of Present Illness Data of Consult Service Date: 12/04/22 Primary Care Provider: Daily Grigsby MD [facility] Reason for consult: stroke 52 years old woman who apparently has diagnosis of CADASIL, came to hospital with new onset of difficulty speaking. There was no associated pain headache nausea or vomiting or any new focal weakness. She was evaluated for acute stroke and due to mild nature of symptoms and underlying diagnosis not considered a candidate for intravenous tPA. Review of Systems Review of Systems: No recent headache cold or flu-like illness PMFSH Past Medical History Medical History CADASIL Hypothyroidism Mood disorder Multiple sclerosis Social History Social History Household Members: Other Housing: Assisted Living Facility Do you presently have visiting nurse or other home services: Yes Alcohol intake: never Patient Tobacco Use Status: Former Tobacco user Tobacco use type: Cigarette Meds Allergies Allergy/AdvReac Type Severity Reaction Status Date / Time No Known Allergies Allergy Verified 04/30/22 15:45 Active Medications: Current Medications Acetaminophen (Acetaminophen 325 Mg Tablet) 650 mg PO Q6H PRN PRN Reason: Pain, Mild (Pain Scale 1-3) Aspirin (Aspirin Enteric Coated 81 Mg Tablet.Dr) 81 mg PO DAILY [facility] Atorvastatin Calcium (Atorvastatin Calcium 40 Mg Tablet) 40 mg PO DAILY [facility] Bupropion HCl (Bupropion Hcl Xl 300 Mg Tab.Er.24h) 300 mg PO DAILY [facility] Dipyridamole/Aspirin (Aspirin/Dipyridamole Er 25/200 Cpmp.12hr) 1 cap PO BID [facility] Enoxaparin Sodium (Enoxaparin Sodium 40 Mg/0.4 Ml Syringe) 40 mg SUBCUT Q24H [facility] Last Admin: 12/04/22 06:06 Dose: 40 mg Fluticasone Propionate (Fluticasone Propionate Nasal 16 Gm [place]) 1 spray NOSTRIL-B DAILY [facility] Fluticasone/Vilanterol (Fluticasone/Vilanterol 100/25 Blst.W.Dev) puff INHALE DAILY [facility] Potassium Chloride (Potassium Chloride/H20) 10 meq in 100 mls @ 100 mls/hr IV Q1H [facility] Stop: 12/04/22 10:59 Last Admin: 12/04/22 09:56 Dose: 100 mls/hr Levothyroxine Sodium (Levothyroxine Sodium 50 Mcg Tablet) 50 mcg PO DAILY [facility] Loratadine (Loratadine 10 Mg Tablet) 10 mg PO DAILY [facility] Melatonin (Melatonin 3 Mg Tablet) 6 mg PO BEDTIME PRN PRN Reason: Insomnia Metformin HCl (Metformin Hcl Er 500 Mg Tab.Er.24h) 500 mg PO BID [facility] Mirtazapine (Mirtazapine 7.5 Mg Tablet) 7.5 mg PO DAILY [facility] Non-Formulary Medication (Diclofenac Sodium) 1 each TOPICAL QID PRN PRN Reason: Pain Non-Formulary Medication (Dulaglutide [Trulicity]) 1.5 mg SUBCUT QWEEK [facility] Ondansetron HCl (Ondansetron Hcl 4 Mg/2 Ml Vial) 4 mg IVPUSH Q8H PRN PRN Reason: Nausea and Vomiting Ondansetron HCl (Ondansetron Odt 4 Mg Tab.Rapdis) 4 mg TRANSLINGU Q8H PRN PRN Reason: Nausea Pharmacy Consult (Consult Rx Perform Med Rec) 1 each MISCELLANE ONCE PRN PRN Reason: Consult order Sodium Chloride (0.9 % Sodium Chloride Flush 3 Ml Syringe) 3 ml IVFLUSH QSHIFT [facility] Last Admin: 12/04/22 07:10 Dose: Not Given Venlafaxine HCl (Venlafaxine Hcl Er 150 Mg Cap.Er.24h) 150 mg PO DAILY [facility] Vitamin D (Cholecalciferol (Vitamin D3) 25 Mcg Tablet) 25 mcg PO DAILY [facility] Home Medications Medication Instructions Recorded Confirmed Last Taken Type acetaminophen 325 mg tablet 650 mg PO TID PRN Pain 12/04/22 12/04/22 Unknown History aspirin 25 mg-dipyridamole 200 mg 1 cap PO BID 12/04/22 12/04/22 Unknown History capsule,ext.release 12 hr multiphase aspirin 81 mg tablet,delayed 81 mg PO DAILY 12/04/22 12/04/22 12/04/22 03:00 History release atorvastatin 40 mg tablet 40 mg PO DAILY 12/04/22 12/04/22 Unknown History blood sugar diagnostic (OneTouch 12/04/22 12/04/22 Unknown History Verio test strips) blood-glucose meter (OneTouch 12/04/22 12/04/22 Unknown History Verio Flex Meter) bupropion HCl 300 mg 24 hr tablet, 300 mg PO DAILY 12/04/22 12/04/22 Unknown History extended release cetirizine 10 mg tablet 10 mg PO DAILY 12/04/22 12/04/22 Unknown History cholecalciferol (vitamin D3) 25 25 mcg PO DAILY 12/04/22 12/04/22 Unknown History mcg (1,000 unit) capsule (Vitamin D3) diclofenac sodium 1 % topical gel 1 ea topical QID PRN Pain 12/04/22 12/04/22 Unknown History dulaglutide 1.5 mg/0.5 mL 1.5 mg subcut QWEEK 12/04/22 12/04/22 Unknown History subcutaneous pen injector (Trulicity) fluticasone furoate 100 1 ea inhalation DAILY 12/04/22 12/04/22 Unknown History mcg-vilanterol 25 mcg/dose inhalation powder (Breo Ellipta) fluticasone propionate 50 1 spray intranasal DAILY 12/04/22 12/04/22 Unknown History mcg/actuation nasal spray,suspension levothyroxine 50 mcg tablet 50 mcg PO DAILY 12/04/22 12/04/22 Unknown History metformin 500 mg tablet,extended 500 mg PO BID 12/04/22 12/04/22 Unknown History release 24 hr mirtazapine 15 mg tablet 7.5 mg PO DAILY 12/04/22 12/04/22 Unknown History ondansetron 4 mg disintegrating 4 mg PO Q8H PRN Nausea 12/04/22 12/04/22 Unknown History tablet venlafaxine 150 mg 150 mg PO DAILY 12/04/22 12/04/22 Unknown History capsule,extended release 24 hr Physical Exam Vital Signs: Vital Signs: Last Vital Signs Temp 97.3 F 12/04/22 09:44 Pulse 79 12/04/22 09:44 Resp 18 12/04/22 09:44 BP 114/64 12/04/22 09:44 Pulse Ox 97 12/04/22 09:44 O2 Del Method Room Air 12/04/22 09:44 BMI result Body Mass Index 27.0 Neuro: Other: she is alert and awake with slightly decreased spontaneity and fluency of speech. She was able to repeat. Visual buchanan were difficult to determine. There was mild right-sided facial flatness. There was mild right hemiparesis. [id number] testing revealed mild ataxia on right side. Results Labs 12/04/22 02:05 12/04/22 02:05 Labs: Short CBC 12/04/22 Range/Units 02:05 WBC 8.8 (4.8-10.8) X10*3/uL Hgb 12.6 (12.0-16.0) g/dl Hct 38.7 (37.0-47.0) % Plt Count 380 (160-400) X10*3/uL BMP 12/04/22 02:05 Sodium 146 H Potassium 3.1 L D Chloride 107 Carbon Dioxide 27 BUN 8 L Creatinine 0.83 Calcium 10.6 H D Cardiac Enzymes 12/04/22 Range/Units 02:05 Total Creatine Kinase 53 (26-140) U/L CT scan of brain revealed extensive diffuse white matter hypodensities including an anterior temporal lobe areas. CTA did not reveal any significant large vessel disease. Assessment and Plan (1) Cerebral infarction: Status: Acute 52 years old woman with diagnosis of CADASIL, came to hospital with new onset of difficulty speaking. Due to minor nature of her symptom she was not treated with intravenous tPA. She has residual right hemiparesis from previous stroke. Imaging confirmed typical findings of her underlying diagnosis. Mainstay of management is control of vascular risk factors, which usually are absent in this type of patients. A baby aspirin daily can continue. Fasting lipid profile is recommended. Otherwise PT OT and speech and swallowing evaluation is recommended Time Spent With Patient Time: Total time managing care of this patient today ____ minutes. Procedures Date of Service Date of Service: 12/04/22
--- NOTE | 2022-12-04 11:25 | MHC.STROKE ---
EMS PRE-NOTIFIED 12/04/22 0131, ARRIVED AT [facility] 0[facility], SEEN BY PROVIDER, SLURRED SPEECH SUPPORT SERVICES MANAGER, NIHSS = 2, STROKE PROTOCOL ACTIVATED. SEE PROVIDER NOTE. CT AND CTA H/N DONE, NO BLEED, NO LVO. ONSET TIME UNCLEAR BUT SOMETIME SUPPORT SERVICES MANAGER, EXCLUDED FROM TPA DUE TO MILD NON-DISABLING SYMPTOMS AND HX OF CADASIL MICROVASCULAR HEREDITARY NEURO DISEASE. SEE NEUROLOGY NOTE. PASSED SWALLOW SCREEN PRIOR TO PO, STROKE EDUCATION INITIATED. ALL STROKE MEASURES MET.
--- NOTE | 2022-12-04 11:31 | MHC.SL.SWA ---
Speech Pathologist Impression: Risk of Aspiration Due to: Neurological Condition Dysphasia Diet Status: Mild Oral phase dysphagia. Recommend ongoing assessment of speech/dysarthria. Liquid Consistency and Strategies for Safe Swallow: Liquid Intake Recommendation: Thin Liquid Intake Strategies: Small Sips Solid Food Consistency: Dietary Recommendations: Regular Additional Modifications to Solid Foods: Encourage patient to make meal selections avoiding very difficult to chew solids. Assure that all food on tray is easy to access, all liquids are opened, and if food is in single large piece, assist patient in cutting into smaller pieces for ease of access (patient has reduced strength and mobility of right arm and hand). Oral Medication Intake: Whole with Liquid Please contact the pharmacy regarding appropriate crushable or liquid drug formulations that are available whenever modified delivery is recommended. Compensatory Strategies and Precautions to be Taken for Safe Swallow: Sitting Upright (90 deg) Liquids from Cup Liquids from Straw Rate of Ingestion Change Avoid Specific Foods Supervision While Eating and Drinking for Safe Swallow: Intermittent Supervision Foods to Avoid: Tough, difficult to chew solids. Swallowing Recommended Treatments: Compens. Strategy Educat. Recommendation for Speech: Inpatient Speech Therapy Comment: Patient presents with a mild oral dysphagia due to slowed movement and mild lingual weakness. Patient on informal observations of speech, presents with a mild dysarthria, characterized by a mildly slowed rate of speech with imprecise articulation which can mildly affect intelligibility. Patient reports that in her normal diet, she avoids tough, difficulty to chew foods. Patient also demonstrates a R unilateral UE weakness, which she reports as baseline. Recommend START regular diet with thin liquids, pills whole with liquid. Patient reports that she normally avoids tough, difficulty to chew solids, and she was advised to make menu choices that avoid these consistencies (v. putting her on a more restrictive, prescribed diet). Patient will require assistance with meal trays from RN or FILM MASKER: Assure that all items are open and accessible to patient (e.g. open juices), larger pieces of food are cut into smaller pieces, and patient is able to access and handle all cutlery at onset of meal. Patient can otherwise independently feed self with this level of support. LYNN GARCÍA notified of recommendation by secure text, discussed with RN in person. White board in room changed to reflect diet recommendations. GRAPHIC PRE PRESS TRADES WORKER will f/u 1-2 X for toleration of diet. Frequency/Duration: Date Range for Service Req: Timeline to reassess: Kier Tender Clinican/Clinical Fellow: No Supervisory Statement: I have reviewed and agree with the student/clinical fellow's documentation: Yes Speech Language Pathologist: Cathleen Faustin M.A., [facility]-GRAPHIC [employer] TRADES WORKER
--- NOTE | 2022-12-04 15:11 | MHC.CM.PN ---
PT REPORTS SHE RESIDES AT [facility] SHE SAYS SHE DID NOT REQUIRE ASSISTANCE WITH [facility], HOWEVER THEY WILL ASSIST IF NEEDED SHE SAYS SHE USES A CANE TO AMBULATE SHE REPORTS HER DAUGHTER IS HER HCP - COPY REQUESTED PCP: SHANE PETER DELIVERED DCP TBD: PT MADE AWARE STR MAY BE RECOMMENDED, SHE REPORTS SHE WOULD LIKE TO RETURN TO [facility] TBD BY DISPOSITION
[2022-12-05 03:05] VITALS: BP 115/63; PULSE 78; RESP 18; TEMP 36.3; O2SAT 97
[2022-12-05 07:23] LABS: Anion Gap 12 (12-20); Blood Urea Nitrogen 8 mg/dL (9-16); Calcium 9.5 mg/dL (8.4-10.2); Carbon Dioxide 29 mmol/L (22-29); Chloride 108 mmol/L (96-108); Creatinine Clr Calc Pharmacy 88.1; Estimated Glomerular Filt Rate > 60; Glucose Random 105 mg/dL (60-115); Potassium 3.9 mmol/L (3.3-5.1); Sodium 145 mmol/L (135-145)
[2022-12-05 08:00] VITALS: BP 108/74; PULSE 75; RESP 20; TEMP 36.4; O2SAT 98
[2022-12-05 08:07] VITALS: PULSE 78; RESP 16; O2SAT 98
--- NOTE | 2022-12-05 09:24 | P.DS_ITS ---
DS: Providers Provider Date of Service: 12/05/22 Date of admission: 12/04/22 05:53 Primary care physician: Daily Grigsby MD Consults: 12/04/22 05:53 Consult to Neurology Routine Consulting Provider: [facility] Reason for consultation: CVA DS: Diagnosis Discharge Diagnosis (1) Cerebral infarction: Status: Acute DS: Summary Hospital Course Hospital Course: Chief Complaint: CVA This is a 52-year-old male with pertinent history of CADASIL, hypothyroidism, mood disorder, multiple sclerosis who presents to the emergency department evaluation of slurred speech.? Patient states it started on the day of presentation.? 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 She denies any sensory or motor extremity deficits.? Patient without fever, chills, chest discomfort, palpitations, shortness of breath, abdominal pain, changes in urinary or bowel habits. In the emergency department, CT head with age indeterminate infarct.? Neurology was consulted who requested admission. hospital course: Patient presented with slur speech, CT heand and MRI did not reveal any acut change, MRI does point to know diagnosis of CADASIL. She was seen by Neuroligst daughter Kj with recommendation to control of vascular risk factors, which usually are absent in this type of patients.? A baby aspirin daily can continue.? Fasting lipid profile is recommended.? Speech therapy saw her and recommends regular diet and thin liquid. She is at baseline mobility according to daughter who cares for her and doesn't think she need PT eval but ok with PT at home. Time Spent with Patient Time attestation: Total time managing care of this patient today ____ minutes. Discharge coordination time: Greater than 30 minutes Quality: Safe Use of Opioids Does Pt have an Active Cancer Diagnosis on the Problem List?: No Quality: Stroke Does the patient have a stroke diagnosis?: No Physical Exam Vital Signs: Vital Signs: Last Vital Signs Temp 97.5 F 12/05/22 08:00 Pulse 78 12/05/22 08:07 Resp 16 12/05/22 08:07 BP 108/74 12/05/22 08:00 Pulse Ox 98 12/05/22 08:00 O2 Del Method Room Air 12/05/22 08:00 BMI result Body Mass Index 27.0 DS: Data Data Completed and Pending Labs on day of discharge: Laboratory Results - last 24 hr 12/04/22 12/04/22 12/05/22 15:58 19:08 06:08 WBC 7.6 RBC 3.93 L Hgb 11.9 L Hct 36.5 L MCV 92.9 MCH 30.3 MCHC 32.6 RDW 12.6 Plt Count 347 MPV 10.2 Immature Gran % (Auto) 0.4 Neut % (Auto) 62.3 Lymph % (Auto) 27.0 [place] % (Auto) 8.1 Eos % (Auto) 1.7 Baso % (Auto) 0.5 Lymph # (Auto) 2.1 [place] # (Auto) 0.6 Eos # (Auto) 0.1 Baso # (Auto) 0.0 Abs Immat Gran (auto) 0.03 Absolute Neuts (auto) 4.7 Absolute Nucleated RBC 0.000 Nucleated RBC % (auto) 0.0 Sodium Potassium Chloride Carbon Dioxide Anion Gap BUN Creatinine Estim Creat Clear Calc Estimated GFR POC Glucose 118 H 150 H Random Glucose Calcium 12/05/22 12/05/22 06:08 07:36 WBC RBC Hgb Hct MCV MCH MCHC RDW Plt Count MPV Immature Gran % (Auto) Neut % (Auto) Lymph % (Auto) [place] % (Auto) Eos % (Auto) Baso % (Auto) Lymph # (Auto) [place] # (Auto) Eos # (Auto) Baso # (Auto) Abs Immat Gran (auto) Absolute Neuts (auto) Absolute Nucleated RBC Nucleated RBC % (auto) Sodium 145 Potassium 3.9 D Chloride 108 Carbon Dioxide 29 Anion Gap 12 BUN 8 L Creatinine 0.74 Estim Creat Clear Calc 88.1 Estimated GFR > 60 POC Glucose 114 Random Glucose 105 Calcium 9.5 D Discharge Plan Discharge Anticipated Discharge Date/Time: 12/05/22 11:34 Patient Disposition: er SNF Discharge Diagnosis: TIA Referrals: Daily Grigsby MD [Primary Care Provider] - 1 Week Discharge Medications: Continued atorvastatin 40 mg tablet 40 mg PO DAILY aspirin-dipyridamole 25-200 mg capsule, ER multiphase 12 hr 1 cap PO BID acetaminophen 325 mg tablet 650 mg PO TID PRN (Reason: Pain) (DME) blood-glucose meter [[employer] Verio Flex meter] Misc MISCELLANEOUS cetirizine 10 mg tablet 10 mg PO DAILY venlafaxine 150 mg capsule,extended release 24hr 150 mg PO DAILY (DME) OneTouch Verio test strips Strip MISCELLANEOUS aspirin 81 mg tablet,delayed release (DR/EC) 81 mg PO DAILY levothyroxine 50 mcg tablet 50 mcg PO DAILY ondansetron 4 mg tablet,disintegrating 4 mg PO Q8H PRN (Reason: Nausea) fluticasone propionate 50 mcg/actuation spray,suspension 1 spray intranasal DAILY cholecalciferol (vitamin D3) [Vitamin D3] 25 mcg (1,000 unit) capsule 25 mcg PO DAILY bupropion HCl 300 mg tablet extended release 24 hr 300 mg PO DAILY fluticasone furoate-vilanterol [Breo Ellipta] 100-25 mcg/dose blister with device 1 ea inhalation DAILY Trulicity 1.5 mg/0.5 mL pen injector 1.5 mg subcut QWEEK mirtazapine 15 mg tablet 7.5 mg PO DAILY metformin 500 mg tablet extended release 24 hr 500 mg PO BID diclofenac sodium 1 % gel 1 ea topical QID PRN (Reason: Pain) Discharge Orders: Discharge Order (Routine); Ordered 12/05/22 Ordered By: Jesús Pineda Diet: Advance to usual diet Activity on Discharge: As tolerated Stand Alone Forms: Patient Portal Discharge page Care Plan Goals: recovery from tia and stroke prevention Health Concerns: recurrrne strokes Plan of Treatment: continue taking aspirin, lipitor and keeping blood pressure within normal Assessment: as above
[2022-12-05 11:33] VITALS: BP 110/61; PULSE 75; RESP 20; TEMP 36.5; O2SAT 99
--- NOTE | 2022-12-05 12:10 | MHC.CM.PN ---
Addendum entered by Elmira Baez 12/05/22 14:58: CM CALLED [facility] THIS MORNING AND SPOKE TO AMANDEEP WHO IS AWARE OF PTS RETURN AND PLAN FOR HOME SERVICES Addendum entered by Elmira Baez 12/05/22 14:07: [facility] ACCEPTING PENDING PCP VERIFICATION. CM ATTEMPTED TO CONTACT [facility] AT [facility], AGAIN NO ANSWER Addendum entered by Elmira Baez 12/05/22 12:54: MESSAGE LEFT FOR [facility] AT [facility] TO DETERMINE IF THEY WILL PROVIDE THE PT SERVICES OR IF THEY WOULD LIKE A [facility] REFERRAL Original Note: CM MET WITH PT AND DAUGHTER TO DISCUSS DC PLANNING PT FEELS SHE IS WELL ENOUGH TO RETURN TO [facility] SHE DOES AGREE TO HOME PT SERVICES REFERRAL MADE TO [facility] PER PT STATED PREFERENCE DAUGHTER WILL TRANSPORT
--- NOTE | 2022-12-05 12:21 | W.MHC.F2F ---
Service Date Service Date: 12/05/22 Encounter Date of encounter: 12/05/22 Reasons for Services Signs and symptoms assessed: weakness, history of stroke Reason for physical therapy: home safety and mobility and therapeutic exercises Homebound: Leaving the home is medically contraindicated at this time without the asist of a device and/or another person due th the listed conditions above and below. Reason homebound: fall risk related to blood pressure changes Homebound supporting statement: homebound bound due to history of stroke weakness, fall risk and therefore needs the assistance of another person Certification: Based on the above findings, I certify that this patient is confined to the home and needs intermittent half-way care, physical therapy and/or speech therapy, or continues to need occupational therapy. The patient is under my care, and I have initiated the establishment of the plan of care. The patient will be followed by a physician who will periodically review the plan of care. Time Spent With Patient Time: Total time managing care of this patient today ____ minutes.
--- NOTE | 2022-12-05 12:49 | MHC.SL.SWA ---
Speech Pathologist Impression: Oral phase dysphagia, dysarthria Risk of Aspiration Due to: Neurological Condition Dysphasia Diet Status: Mild Oral phase dysphagia. Recommend outpatient speech therapy for dysarthria, eval of language and cognition. Liquid Consistency and Strategies for Safe Swallow: Liquid Intake Recommendation: Thin Liquid Intake Strategies: Small Sips Solid Food Consistency: Dietary Recommendations: Regular Additional Modifications to Solid Foods: Encourage patient to make meal selections avoiding very difficult to chew solids. Assure that all food on tray is easy to access, all liquids are opened, and if food is in single large piece, assist patient in cutting into smaller pieces for ease of access (patient has reduced strength and mobility of right arm and hand). Oral Medication Intake: Whole with Liquid Please contact the pharmacy regarding appropriate crushable or liquid drug formulations that are available whenever modified delivery is recommended. Compensatory Strategies and Precautions to be Taken for Safe Swallow: Sitting Upright (90 deg) Small Bites and Sips Alternate Liquids/Solids Rate of Ingestion Change Avoid Specific Foods Supervision While Eating and Drinking for Safe Swallow: Intermittent Supervision Foods to Avoid: Tough, difficult to chew solids. Swallowing Recommended Treatments: Compens. Strategy Educat. Recommendation for Speech: Outpatient speech therapy Cook Morning Clinican/Clinical Fellow: No Supervisory Statement: I have reviewed and agree with the student/clinical fellow's documentation: Yes Speech Language Pathologist: Sue Espino M.A., CCC-PTA
== END 2022-12-05 13:48 | disposition home health service (06) | DRG 72 ==
LOC: HO.ED 03:48 → HO.EDOVER 05:58 → HO.IMC 08:20
PROVIDERS: Admitting Provider Student in an Organized Health Care Education/Training Program; Emergency Provider Student in an Organized Health Care Education/Training Program; PCP Internal Medicine; Visit Provider Internal Medicine
DX: I67.850 Cerebral autosomal dominant arteriopathy with subcortical infarcts and leukoencephalopathy (principal); R47.81 Slurred speech; G35 Multiple sclerosis; I69.331 Monoplegia of upper limb following cerebral infarction affecting right dominant side; E03.9 Hypothyroidism, unspecified; E87.6 Hypokalemia; Z79.51 Long term (current) use of inhaled steroids; Z79.82 Long term (current) use of aspirin; Z79.84 Long term (current) use of oral hypoglycemic drugs; Z79.890 Hormone replacement therapy; Z79.899 Other long term (current) drug therapy
CPT/HCPCS: 36415; 70450; 70496; 70498; 70551; 80048; 80061; 82550; 82947; 84484; 85025; 85610; 85730; 92526; 92610; 93005; 94640; 99284; J1650; Q9967

== ENCOUNTER → 2022-12-04 05:53 | Outpatient (BNV) | payer OTHER, SELFPAY | PROVIDERS: Admitting Provider Student in an Organized Health Care Education/Training Program; Emergency Provider Student in an Organized Health Care Education/Training Program; PCP Internal Medicine; Visit Provider Student in an Organized Health Care Education/Training Program | DX: I63.9 Cerebral infarction, unspecified (principal) | CPT/HCPCS: 99222; 99239; G0180 ==

== ENCOUNTER 2023-08-28 09:39 | Emergency (ER) | payer OTHER, SELFPAY ==
--- NOTE | ~2023-08-28 | XR_ITS ---
EXAMINATION: XR CHEST CLINICAL INFORMATION: Shortness of breath COMPARISON: None available. TECHNIQUE: 2 views of the chest were obtained. FINDINGS: No significant abnormality is noted involving the heart, lungs, mediastinum, bony thorax or soft tissues. XR/XR chest 2V IMPRESSION: Unremarkable examination.
[2023-08-28 09:41] VITALS: BP 117/67; PULSE 102; RESP 24; TEMP 36.8; O2SAT 97; BMI 24.6
--- NOTE | 2023-08-28 09:52 | ED_ITS ---
HPI - General Adult General Chief complaint: Dyspnea Stated complaint: Diff breathing Time Seen by Provider: 08/28/23 09:52 History of Present Illness HPI narrative: The patient is a 53-year-old female who says that she has a history of asthma. She has also a cigarette smoker although she says only smokes 1-2 cigarettes per day at this point. She says that yesterday evening at around 19:00 she started to feel short of breath and developed a cough. She was not feverish. Her symptoms worsened significantly this morning until she felt extremely short of breath. She could not find her inhalers at home and she came to the hospital for evaluation. No nausea or vomiting. The patient has a history of having had a stroke last year. She was treated at [facility]. She says that the stroke affected her ability to walk. She also has a history of multiple sclerosis. Related Data Home Medications Medication Instructions Recorded Confirmed acetaminophen 325 mg tablet 650 mg PO TID PRN Pain 12/04/22 12/04/22 aspirin 25 mg-dipyridamole 200 mg 1 cap PO BID 12/04/22 12/04/22 capsule,ext.release 12 hr multiphase aspirin 81 mg tablet,delayed 81 mg PO DAILY 12/04/22 12/04/22 release atorvastatin 40 mg tablet 40 mg PO DAILY 12/04/22 12/04/22 blood sugar diagnostic ([facility] 12/04/22 12/04/22 Verio test strips) blood-glucose meter ([facility] 12/04/22 12/04/22 Verio Flex Meter) bupropion HCl 300 mg 24 hr tablet, 300 mg PO DAILY 12/04/22 12/04/22 extended release cetirizine 10 mg tablet 10 mg PO DAILY 12/04/22 12/04/22 cholecalciferol (vitamin D3) 25 25 mcg PO DAILY 12/04/22 12/04/22 mcg (1,000 unit) capsule (Vitamin D3) diclofenac sodium 1 % topical gel 1 ea topical QID PRN Pain 12/04/22 12/04/22 dulaglutide 1.5 mg/0.5 mL 1.5 mg subcut QWEEK 12/04/22 12/04/22 [facility] fluticasone furoate 100 1 ea inhalation DAILY 12/04/22 12/04/22 mcg-vilanterol 25 mcg/dose inhalation powder (Breo Ellipta) fluticasone propionate 50 1 spray intranasal DAILY 12/04/22 12/04/22 mcg/actuation nasal spray,suspension levothyroxine 50 mcg tablet 50 mcg PO DAILY 12/04/22 12/04/22 metformin 500 mg tablet,extended 500 mg PO BID 12/04/22 12/04/22 release 24 hr mirtazapine 15 mg tablet 7.5 mg PO DAILY 12/04/22 12/04/22 ondansetron 4 mg disintegrating 4 mg PO Q8H PRN Nausea 12/04/22 12/04/22 tablet venlafaxine 150 mg 150 mg PO DAILY 12/04/22 12/04/22 capsule,extended release 24 hr Previous Rx's Medication Instructions Recorded albuterol sulfate 90 mcg/actuation 2 puff inhalation Q4-6H PRN 08/28/23 aerosol inhaler shortness of breath or wheezing #8.5 grams azithromycin 250 mg tablet 250 mg PO DAILY 4 days #4 tabs 08/28/23 prednisone 20 mg tablet 20 mg PO DAILY #12 tabs 08/28/23 Allergies Allergy/AdvReac Type Severity Reaction Status Date / Time No Known Allergies Allergy Verified 04/30/22 15:45 Review of Systems 2 Review of Systems: Yes all other systems are reviewed and are negative [facility] Past Medical History Medical History CADASIL Hypothyroidism Mood disorder Multiple sclerosis Social History Social History Household Members: Other Housing: Assisted Living Facility Do you presently have visiting nurse or other home services: Yes Alcohol intake: former Patient Tobacco Use Status: Former Tobacco user Tobacco use type: Cigarette Smoked in Last 30 Days: Yes Use of substances other than those prescribed or required for medical reasons: No Advance Directives: No Advance Directives Information Provided: No service: No Physical Exam ED Vital Signs: Vital Signs - 24 hr 08/28/23 09:41 08/28/23 09:56 08/28/23 10:14 Temperature 98.2 F Pulse Rate 102 H 95 90 Respiratory Rate 24 H 18 20 Blood Pressure 117/67 Pulse Oximetry 97 95 Oxygen Delivery Method Room Air Room Air 08/28/23 12:18 08/28/23 12:44 Temperature Pulse Rate 82 82 Respiratory Rate 14 14 Blood Pressure 111/68 Pulse Oximetry 97 Oxygen Delivery Method Room Air BMI result Body Mass Index 24.6 Const Other: The patient is a somewhat chronically ill-appearing 53-year-old. She looks somewhat older than her age. She is awake and alert with a normal mental status. She looks mildly short of breath HENMT Other: Face is symmetrical. Mucous membranes moist. Pharynx is unremarkable. Eyes Other: Pupils are round equal, conjunctivae are clear, extraocular movements intact Neck Other: No JVD Resp Other: Mild increased work of breathing. Inspiratory and expiratory wheezes bilaterally. Cardio Rate: regular rate Rhythm: regular rhythm Heart sounds: S1 normal heart sound present and S2 normal heart sound present Skin Other: Skin is dry and unremarkable Neuro Other: The patient is awake, alert, pleasant, cooperative. Normal mental status. Grossly neurologically intact. Extrem Other: No calf swelling or tenderness. No asymmetry. No peripheral edema Medications Administered Discontinued Medications Generic Name Dose Route Start Last Admin Trade Name Treq PRN Reason Stop Dose Admin Albuterol/Ipratropium 3 ml 08/28/23 12:36 08/28/23 12:44 Albuterol/Iprat 2.5/0.5mg 3 Ml Ampul.Neb INHALE 08/28/23 12:37 3 ml ONCE ONE Administration Azithromycin 500 mg 08/28/23 12:36 08/28/23 12:52 Azithromycin 500 Mg Tablet PO 08/28/23 12:37 500 mg ONCE ONE Administration Albuterol Sulfate 2.5 mg/ 0 mg 08/28/23 10:10 08/28/23 10:14 Albuterol/Ipratropium 3 ml INHALE 08/28/23 10:11 1 dose ONCE ONE Administration Prednisone 60 mg 08/28/23 12:36 08/28/23 12:52 Prednisone 20 Mg Tablet PO 08/28/23 12:37 60 mg ONCE ONE Administration Medical Decision Making Medical Decision Making MDM Narrative: The patient is a 53-year-old female with a history of asthma who presents with acute shortness of breath and obvious wheezing on physical exam. She a lifetime and I suspect she probably has some underlying COPD. The patient was treated with bronchodilator treatments with significant improvement. She will be started on prednisone and azithromycin as well. She felt considerably better and was eager for discharge. Lab Data 08/28/23 11:40 08/28/23 11:40 Labs: Lab Results 08/28/23 08/28/23 Range/Units 10:10 11:40 WBC 10.4 (4.8-10.8) X10*3/uL RBC 4.04 L (4.20-5.50) X10*6/uL Hgb 12.2 (12.0-16.0) g/dl Hct 36.1 L (37.0-47.0) % MCV 89.4 (80.0-98.0) fL MCH 30.2 (27.0-33.0) pg MCHC 33.8 (31.0-35.0) g/dl RDW 12.6 (11.0-16.0) % Plt Count 336 (160-400) X10*3/uL MPV 9.5 (9.4-12.3) fL Immature Gran % (Auto) 0.3 (0.0-0.4) % Neut % (Auto) 68.2 (45-73) % Lymph % (Auto) 23.1 (20-40) % [place] % (Auto) 6.2 (2-11) % Eos % (Auto) 1.7 (0-4) % Baso % (Auto) 0.5 (0-2) % Lymph # (Auto) 2.4 (1.2-4.9) X10*3/uL [place] # (Auto) 0.7 (0.1-1.2) X10*3/uL Eos # (Auto) 0.2 (0.0-0.4) X10*3/uL Baso # (Auto) 0.1 (0.0-0.2) X10*3/uL Abs Immat Gran (auto) 0.03 (0.00-0.03) X10*3/uL Absolute Neuts (auto) 7.1 (2.0-8.3) x10*3/uL Absolute Nucleated RBC 0.000 (0.0-0.012) X10*3/uL Nucleated RBC % (auto) 0.0 (0.0-0.2) /100WBC Sodium 146 H (135-145) mmol/L Potassium 3.7 (3.3-5.1) mmol/L Chloride 110 H (96-108) mmol/L Carbon Dioxide 29 (22-29) mmol/L Anion Gap 11 L (12-20) BUN 12 (9-16) mg/dL Creatinine 1.00 (0.5-1.4) mg/dL Estim Creat Clear Calc 54.9 Estimated GFR 58 Random Glucose 121 H (60-115) mg/dL Calcium 9.6 (8.4-10.2) mg/dL Magnesium 1.9 (1.6-2.6) mg/dL Troponin I High Sens < 2.7 (<3.5-17.0) ng/L C-Reactive Protein 0.42 (< or = 0.50) mg/dL B-Natriuretic Peptide 12 (<100) pg/mL Influenza Type A (PCR) NEGATIVE (Negative) Influenza Type B (PCR) NEGATIVE (Negative) RSV RNA Qual (PCR) NEGATIVE (Negative) SARS-CoV-2 RNA (RT-PCR) NEGATIVE (Negative) Independent Interpretation I performed an independent interpretation of an: EKG Interpretation: EKG at 11:33 shows normal sinus rhythm at 83 beats per minute. No acute ischemic changes. No significant change from previous. Discharge Plan Discharge Clinical Impression: Acute asthma exacerbation Patient Disposition: Home, Self-Care Instructions: Asthma (ED), How to Use a Metered-Dose Inhaler and a Spacer (ED) Additional Instructions: You seem to be having an exacerbation of your asthma. You have been started on a course of prednisone and azithromycin. Medications have been sent to your pharmacy. Please take these medications once a day until done. You received a dose of each of these medications today. You will not need another dose until tomorrow. Additionally I have sent a prescription for albuterol to your pharmacy. Please use the albuterol inhaler 2 puffs every 4-6 hours as needed. Use the inhaler with the AeroChamber (spacer). Please contact your regular doctor's office to make a prompt follow up appointment. Return to the emergency room if worse Prescriptions: New prednisone 20 mg tablet 20 mg PO DAILY Qty: 12 0RF Rx Instructions: Take 3 tablets by mouth daily for 2 days then take 2 tablets by mouth daily for 3 days azithromycin 250 mg tablet 250 mg PO DAILY 4 Days Qty: 4 0RF Rx Instructions: start on day 2 of therapy albuterol sulfate 90 mcg/actuation HFA aerosol inhaler 2 puff inhalation Q4-6H PRN (Reason: shortness of breath or wheezing) Qty: 8.5 0RF No Action atorvastatin 40 mg tablet 40 mg PO DAILY aspirin-dipyridamole 25-200 mg capsule, ER multiphase 12 hr 1 cap PO BID acetaminophen 325 mg tablet 650 mg PO TID PRN (Reason: Pain) (DME) blood-glucose meter [[employer] Verio Flex meter] Misc MISCELLANEOUS cetirizine 10 mg tablet 10 mg PO DAILY venlafaxine 150 mg capsule,extended release 24hr 150 mg PO DAILY (DME) [employer] test strips Strip MISCELLANEOUS aspirin 81 mg tablet,delayed release (DR/EC) 81 mg PO DAILY levothyroxine 50 mcg tablet 50 mcg PO DAILY ondansetron 4 mg tablet,disintegrating 4 mg PO Q8H PRN (Reason: Nausea) fluticasone propionate 50 mcg/actuation spray,suspension 1 spray intranasal DAILY cholecalciferol (vitamin D3) [Vitamin D3] 25 mcg (1,000 unit) capsule 25 mcg PO DAILY bupropion HCl 300 mg tablet extended release 24 hr 300 mg PO DAILY fluticasone furoate-vilanterol [Breo Ellipta] 100-25 mcg/dose blister with device 1 ea inhalation DAILY Trulicity 1.5 mg/0.5 mL pen injector 1.5 mg subcut QWEEK mirtazapine 15 mg tablet 7.5 mg PO DAILY metformin 500 mg tablet extended release 24 hr 500 mg PO BID diclofenac sodium 1 % gel 1 ea topical QID PRN (Reason: Pain) Referrals: Daily Grigsby MD [Primary Care Provider] - (Asthma exacerbation)
[2023-08-28 09:56] VITALS: PULSE 95; RESP 18; O2SAT 95
[2023-08-28 10:14] VITALS: PULSE 90; RESP 20; O2SAT 95
[2023-08-28] MEDS: Albuterol Sulfate 2.5 MG, Albuterol/Iprat 2.5/0.5MG 3 ML 3 ML INHALE (10:14)
--- NOTE | 2023-08-28 11:13 | ECG_ITS ---
Test Reason : SOB Blood Pressure : / mmHG Vent. Rate : 083 BPM Atrial Rate : 083 BPM P-R Int : 162 ms QRS Dur : 082 ms QT Int : 358 ms P-R-T Axes : 048 055 063 degrees QTc Int : 420 ms Normal sinus rhythm Low voltage QRS Nonspecific T wave abnormality Abnormal ECG When compared with ECG of 04-DEC-2022 03:04, No significant change was found Referred By: Jamal Polo Electronically Signed By:NIKUNJ SUMMERS MD
[2023-08-28 11:19] LABS: Influenza A PCR NEGATIVE (Negative); Influenza B PCR NEGATIVE (Negative); Resp Syncy Virus RNA Qual PCR NEGATIVE (Negative); SARS COV2 PCR INHOUSE NEGATIVE (Negative)
[2023-08-28 11:44] LABS: MANUAL DIFF FLAG NO
[2023-08-28 11:45] LABS: Basophils Absolute Auto 0.1 X10*3/uL (0.0-0.2); Basophils Percent Auto 0.5 % (0-2); Eosinophils Absolute Auto 0.2 X10*3/uL (0.0-0.4); Eosinophils Percent Auto 1.7 % (0-4); Hematocrit 36.1 % (37.0-47.0); Hemoglobin 12.2 g/dl (12.0-16.0); Imm Gran Abs Auto 0.03 X10*3/uL (0.00-0.03); Imm Gran Pct Auto 0.3 % (0.0-0.4); Lymphocytes Absolute Auto 2.4 X10*3/uL (1.2-4.9); Lymphocytes Percent Auto 23.1 % (20-40); Mean Corpuscular HGB Conc 33.8 g/dl (31.0-35.0); Mean Corpuscular Hemoglobin 30.2 pg (27.0-33.0); Mean Corpuscular Volume 89.4 fL (80.0-98.0); Mean Platelet Volume 9.5 fL (9.4-12.3); Monocytes Absolute Auto 0.7 X10*3/uL (0.1-1.2); Monocytes Percent Auto 6.2 % (2-11); Neutrophils Absolute Auto 7.1 x10*3/uL (2.0-8.3); Neutrophils Percent Auto 68.2 % (45-73); Platelet Count 336 X10*3/uL (160-400); Red Blood Count 4.04 X10*6/uL (4.20-5.50); Red Cell Distribution Width 12.6 % (11.0-16.0); White Blood Count 10.4 X10*3/uL (4.8-10.8)
[2023-08-28 11:58] LABS: Anion Gap 11 (12-20); Blood Urea Nitrogen 12 mg/dL (9-16); C Reactive Protein 0.42 mg/dL (< or = 0.50); Calcium 9.6 mg/dL (8.4-10.2); Carbon Dioxide 29 mmol/L (22-29); Chloride 110 mmol/L (96-108); Creatinine Clr Calc Pharmacy 54.9; Estimated Glomerular Filt Rate 58; Glucose Random 121 mg/dL (60-115); Magnesium 1.9 mg/dL (1.6-2.6); Potassium 3.7 mmol/L (3.3-5.1); Sodium 146 mmol/L (135-145)
[2023-08-28 12:05] LABS: B Type Natriuretic Peptide 12 pg/mL (<100)
[2023-08-28 12:07] LABS: Troponin-I High Sensitivity < 2.7 ng/L (<3.5-17.0)
[2023-08-28 12:18] VITALS: BP 111/68; PULSE 82; RESP 14; O2SAT 97
[2023-08-28 12:44] VITALS: PULSE 82; RESP 14; O2SAT 96
[2023-08-28] MEDS: Albuterol/Iprat 2.5/0.5MG 3 ML AMPUL.NEB INHALE (12:44)
[2023-08-28] MEDS: predniSONE 20 MG TABLET 60 MG PO (12:52)
[2023-08-28] MEDS: Azithromycin 500 MG TABLET PO (12:52)
== END 2023-08-28 13:45 | disposition home or self-care (01) ==
PROVIDERS: Emergency Provider Emergency Medicine; PCP Internal Medicine
DX: J45.901 Unspecified asthma with (acute) exacerbation (principal); R06.00 Dyspnea, unspecified; R06.02 Shortness of breath; R94.31 Abnormal electrocardiogram [ECG] [EKG]; F17.210 Nicotine dependence, cigarettes, uncomplicated; Z11.52 Encounter for screening for COVID-19; Z20.822 Contact with and (suspected) exposure to COVID-19; Z79.899 Other long term (current) drug therapy
CPT/HCPCS: 0241U; 36415; 71046; 80048; 83735; 83880; 84484; 85025; 86140; 93005; 94640; 99284; 99285

== ENCOUNTER → 2023-08-28 11:13 | Outpatient (BNV) | payer OTHER, SELFPAY | PROVIDERS: Emergency Provider Emergency Medicine; PCP Internal Medicine; Visit Provider Internal Medicine Cardiovascular Disease | DX: R06.02 Shortness of breath (principal) | CPT/HCPCS: 93010 ==